=== PATIENT | male | born 1930 | race Hispanic/Latino ===

== ENCOUNTER 2016-12-16 18:51 | Inpatient (IN) | payer MEDICARE ==
--- NOTE | 2016-12-16 21:44 | RAD ---
RIGHT KNEE FOUR VIEW 12/16/16 HISTORY: Pain. COMPARISON: None. FINDINGS: Severe medial compartment osteoarthrosis and moderate patellofemoral and lateral compartment osteoar throsis. Severe vascular calcifications. There is articular surface remodeling and sclerosis of the medial compartment. IMPRESSION: 1. Severe medial compartment and moderate to severe lateral compartment and patellofemoral comp artment osteoarthritic disease. 2. Severe vascular calcifications. 3. No displaced fracture or malalignment. POS: [facility]
--- NOTE | 2016-12-16 22:58 | RAD ---
RIGHT HIP TWO VIEW 12/16/16 HISTORY: Pain. COMPARISON: Radiographs from the OR from 08/17/16. FINDINGS: There is a fracture of the right femoral neck which is mildly displaced and foreshortened approximat aram 7 mm. Partial backing out of the three partially threaded cannulated screws. IMPRESSION: Partial backing out of the three partially threaded cannulated screws with fracture of the femoral n emory with foreshortening of 7 mm. POS: [facility]
[2016-12-16] MEDS ORDERED: Acetaminophen 500 MG TAB ONE (23:16)
--- NOTE | 2016-12-16 23:21 | RAD ---
PELVIS AP STANDARD 12/16/16 HISTORY: Fracture. COMPARISON: Spot radiographs from 08/17/16. FINDINGS: There has been interval backing out of the three partially threaded cannulated screws. There is a fr acture of the femoral neck which is now displaced. There appears to be a similar fracture line as th at of the comparison. There is foreshortening of the right femoral neck approximately 6 mm. Left femoral nail is present. IMPRESSION: Partial backing out of the three partially threaded cannulated screws with fracture of the femoral n emory which is displaced and foreshortened. Orthopedic consultation is recommended. POS: [facility]
[2016-12-17] MEDS ORDERED: traMADol HCl 50 MG TAB PO PRN ×2 (00:39)
[2016-12-17] MEDS ORDERED: Dextrose 5% in Water 1,000 ML IV PRN (00:39)
[2016-12-17] MEDS ORDERED: Dextrose 50% Abboject 50 ML SYRINGE SLOW IVP PRN (00:39)
[2016-12-17] MEDS ORDERED: Ondansetron ODT 4 MG TAB PO PRN (00:39)
[2016-12-17] MEDS ORDERED: Ondansetron HCl/PF 4 MG/2 ML Vial IVP PRN (00:39)
[2016-12-17] MEDS ORDERED: Morphine Sulfate 2 MG/ML SYRINGE IVP PRN (00:39)
[2016-12-17] MEDS ORDERED: Sodium Chloride 0.9% 1,000 ML IV SCH (00:45)
[2016-12-17 01:00] LABS: #Basophils 0.1 thou/uL (0.0-0.2); #Eosinphils 0.3 thou/uL (0.0-0.7); #Lymphocytes 1.6 thou/uL (1.20-3.40); #Monocytes 0.8 thou/uL (0.11-0.59); #Neutrophils 6.5 thou/uL (1.40-6.50); %Basophils 0.9 % (0.0-1.0); %Lymphocytes 16.8 % (21.0-51.0); %Monocytes 8.8 % (0.0-10.0); Hematocrit 27.4 % (42.0-52.0); Mean Platelet Volume 7.6 fL (7.4-10.4); Red Blood Cell (RBC) Count 3.08 mill/uL (4.70-6.10); White Blood Cell (WBC) Count 9.3 thou/uL (4.8-10.8)
[2016-12-17 01:07] LABS: Prothrombin Time 14.3 SEC (12.0-14.7)
[2016-12-17 01:08] LABS: PTT 32.5 SEC (22.9-36.1)
[2016-12-17 01:25] LABS: Troponin I 0.066 ng/mL (< 0.028)
[2016-12-17 01:28] LABS: Anion Gap 17 mmol/L (10-20); BUN (Urea Nitrogen) 88 mg/dL (8.4-25.7); Calcium 10.4 mg/dL (7.8-10.44); Carbon Dioxide 23 mmol/L (23-31); Chloride 105 mmol/L (98-107); Magnesium 2.2 mg/dL (1.6-2.6); Phosphorus 6.1 mg/dL (2.3-4.7)
[2016-12-17 02:17] LABS: Calc. Creatinine Clearance 0 mL/min (70-130); Estimated GFR-MDRD 15
[2016-12-17 03:21] VITALS: BMI 23.1
[2016-12-17] MEDS: Acetaminophen 500 MG TAB PO SCH ×3 (05:30→18:44)
[2016-12-17] MEDS ORDERED: Tamsulosin HCl 0.4 MG CAP PO SCH (06:00)
--- NOTE | 2016-12-17 06:35 | HP ---
DATE OF ADMISSION: 12/17/2016 ATTENDING PHYSICIAN: Lv Lugo M.D. HISTORY OF PRESENT ILLNESS: Mr. Jones is an 86-year-old gentleman who presented to the [facility] with the chief complaint of right knee pain status post fall 2 days ago. The patien t was evaluated by emergency room personnel and found to have a right femoral neck fracture. Orthop edic surgery was notified and trauma services was asked to admit. Upon my evaluation, the patient r eports that he fell 2 days ago while trying to adjust something in his living room from his wheelcha ir. He forgot to lock the wheelchair, wheels down and fell out. He denied any head trauma or loss of consciousness. He has the chief complaint of right leg pain primarily located in the right hip a gage. No other complaints at this time. ALLERGIES: None. CHRONIC MEDICAL ILLNESSES: 1. Include congestive heart failure, EF approximately 40% to 45% per echo on 05/2016. He has follo wed by Dr. Guzman. 2. CKD followed by Dr. Gould. Baseline creatinine appears to be around 4. 3. History of coronary artery disease status post CABG. 4. COPD on chronic home O2; however, patient has not wearing O2 in the emergency room and O2 sat is 97%. 5. Chronically elevated troponin per H and P on 08/2016. 6. History of CVA, no residual deficit. 7. History of hypertension. 8. Dyslipidemia. 9. BPH. 10. Chronic anemia. 11. History of PE on aspirin only. PAST SURGICAL HISTORY: Significant for CABG, bilateral carotid endarterectomy, right eyelid surgery , left hip replacement, right hip repair, right knee surgery, left knee replacement. HOME MEDICATIONS: Include tamsulosin 0.4 mg p.o. daily, simvastatin 40 mg p.o. daily, ASA 81 mg p.o . daily, Plavix 75 mg p.o. daily, metolazone 5 mg 1 p.o. every other day, B12 supplement, calcitriol , Lasix 80 mg p.o. daily. SOCIAL HISTORY: The patient is wheelchair bound and lives at home with . Denies alcohol, tobac co or drug use. REVIEW OF SYSTEMS: Negative except as indicated in the HPI. FAMILY HISTORY: Significant for pancreatic cancer, brother with pancreatic cancer. CODE STATUS: FULL CODE. PHYSICAL EXAMINATION: VITAL SIGNS: Heart rate 88, blood pressure 183/96, O2 sat 97% on room air, respirations 18. GENERAL: Well-developed elderly appearing male in no acute distress, resting in bed. HEAD: Normocephalic, atraumatic. EYES: Pupils are PERRL. Extraocular movements are intact. NECK: Supple. Trachea is midline. There is no tenderness to palpation. Range of motion within no rmal limits. PULMONARY/CHEST: Atraumatic. Lungs: Normal work of breathing, symmetric rise. Lung sounds are di stant, but clear to auscultation bilaterally. CARDIOVASCULAR: Regular rate and rhythm, no obvious murmurs, rubs or gallops. ABDOMEN: Soft, atraumatic, nontender, nondistended. Bowel sounds are positive. BACK: Back exam is being reported within normal limits. MUSCULOSKELETAL: Bilateral upper extremities with scattered ecchymosis. No tenderness to palpation . Range of motion within normal limits per patient. Left lower extremity within normal limits, 1+ pedal edema bilaterally. Right lower extremity range of motion limited secondary to pain. He is ne urovascularly intact to the site of his injury. NEUROLOGIC: GCS 15. No focal deficit noted. LABORATORY FINDINGS: All laboratory findings are pending to include CBC, BMP, PT/INR and cardiac en zymes. EKG pending. Chest x-ray pending. X-ray of the right hip shows right femoral neck fracture with displacement of previously placed femoral hardware. Official read for pelvic x-ray pending. Right knee x-ray was negative for acute traumatic bony fracture or dislocation. ASSESSMENT: 1. Status post fall. 2. Acute traumatic pain. 3. Right femoral neck fracture. 4. History of coronary artery disease and congestive heart failure, status post bypass, known eject ion fraction of 40% to 45%. 5. Chronic kidney disease stage 4, followed by Dr. Gould. 6. History of cerebrovascular accident. 7. Hypertension. 8. History of chronic obstructive pulmonary disease. 9. History of chronic anemia. PLAN: 1. Admit to Trauma Services. 2. Orthopedic surgery has been notified and will evaluate the patient. 3. Cardiology consult for cardiac clearance perioperatively. 4. Follow up labs. 5. Pain management. 6. Antihypertensives p.r.n. and resume home medications once reconciled. 7. The patient was FULL CODE per discussion with patient and family at bedside. 8. Trauma attending has been notified of the admission. Admission was discussed with the patient a nd family. All questions were answered at the time of dictation.
[2016-12-17] MEDS ORDERED: HYDROcodone/Acetaminophen 7.5/325 mg Tablet PO PRN ×2 (07:59)
--- NOTE | 2016-12-17 08:13 | RAD ---
SINGLE VIEW OF THE CHEST: Comparison: 11-13-16 History: CHF. Pre-operative radiograph. FINDINGS: Single view of the chest shows an enlarged cardiomediastinal silhouette. The patient is status post sternotomy. Cardiac monitoring device projects over the left chest. Increased interstitial markings are present. There appear to be small bilateral pleural effusions. No changes compared to the prior exam. IMPRESSION: Stable cardiomegaly and small bilateral pleural effusions. POS: [facility]
[2016-12-17 08:28] LABS: Troponin I 0.074 ng/mL (< 0.028)
--- NOTE | 2016-12-17 10:14 | CON ---
DATE OF CONSULTATION: 12/17/2016 CONSULTING PHYSICIAN: Dr. Adin Gonzalez The patient admitted today via Trauma. He is an 86-year-old gentleman who came into the emergency [facility] with hip pain. Via history and family, he stood up to adjust something from his wheelchai r, it was not locked and he fell. He had had his hip repaired in July with percutaneous screws by Dr. Monet. Postoperatively the patient then went to rehab/skilled more to work with therapy, but he never really walked well per family. He always stated he could not walk. Digging a little deepe r it was because of pain. Family is not sure if the hip has been bothersome like it has been since his rehab stint or something happen there or if it just broke via his fall 2 days ago, they are not sure, but he has not ambulated very much since July. He has gotten up to the wheelchair and the co mmode, but that is about it per family. X-rays show percutaneous screws that look like they have backed out and the neck in the femoral head are displaced. PAST MEDICAL MEDICATIONS/MEDICATIONS/ALLERGIES/REVIEW OF SYSTEMS/MEDICAL HISTORY/SURGICAL HISTORY: Can all be gleaned from Zonia Mcclain's note dictated on 12/17/2016. I have gone over this with ck mora family, there are no changes. ASSESSMENT: Failure of hardware with fall and reoccurring right femoral neck fracture. PLAN: I spoke at length with the family. The patient is a little somnolent right now after receivi ng some tramadol, but he told the family he wants surgery and he wants to get back to his active lif estyle that has been diminished since July per the family. We discussed hardware removal with a he miarthroplasty and the patient and family are amenable to go forth with this. Our plan is to do thi s tomorrow at 12 once and if he is medically cleared. I discussed risks, benefits of doing surgery versus not doing the surgery and the patient and family are amenable to go forth with surgery. I recinos ve answered all their current questions and am available as is Dr. Gonzalez to go over any question s that may arise.
--- NOTE | 2016-12-17 11:56 | PRG ---
DATE OF SERVICE: 12/17/2016 The patient is being seen in the presence of his adult daughter and his at bedside. SUBJECTIVE: He reports intermittent episodes of pain into his hip. Pain currently is controlled on oral analgesics. The patient is otherwise on bowel rest. OBJECTIVE: VITAL SIGNS: Includes blood pressure 154/65, pulse 67, respiration 16, temperature is 97.5 degrees Fahrenheit, oxygen saturation is 98% on room air. HEENT: Reveals normocephalic and atraumatic. Pupils equal, round, reactive to light and accommodat ion. Extraocular muscles are intact bilaterally. No sclerae icterus is present. HEART: Reveals regular rate and rhythm, no murmurs or gallops auscultated. CHEST: Clear to auscultation bilaterally. CARDIOVASCULAR: Breathing is regular and unlabored. ABDOMEN: Soft, nontender and nondistended. Bowel sounds in all 4 quadrants, appear normoactive. EXTREMITIES: There are 2+ radial and pedal pulses bilaterally. No ankle edema is present. NEUROLOGIC: Reveals no focal deficits present. LABORATORY: I have reviewed the laboratory studies on this admission as reported by the trauma PA o n the history and physical. This includes metabolic profile: Sodium 140, potassium 4.5, chloride i s 105, bicarbonate 23, BUN and creatinine elevated at baseline 88 and 3.93 respectively. Glucose is 119. Due to this patient's extensive comorbidities and cardiac history, he has been seen in consultation by Cardiology prior to surgical intervention for the right hip fracture. Otherwise no additional critical care resuscitation is warranted for this patient at this time.
--- NOTE | 2016-12-17 14:18 | PRG ---
DATE OF SERVICE: 12/17/2016 SUBJECTIVE: Mr. Jones is awake and alert. His and daughter are at bedside during this visit . The patient reports intermittent hip pain. His pain is currently controlled on oral analgesics. On bowel rest, pending decision for surgical intervention. PHYSICAL EXAMINATION: VITAL SIGNS: Includes blood pressure 154/65, pulse 67, respiration is 16, temperature is 97.5 degre es Fahrenheit and oxygen saturation is 98% on room air. HEENT: Reveals normocephalic and atraumatic. Pupils equal, round, and reactive to light and accomm odation.
[2016-12-17] MEDS ORDERED: diphenhydrAMINE HCl 25 MG CAP PO SCH (17:00)
--- NOTE | 2016-12-17 17:51 | CON ---
DATE OF CONSULTATION: 12/17/2016 REASON FOR CONSULTATION: Preoperative evaluation. HISTORY OF PRESENT ILLNESS: Mr. Jones is a very pleasant 86-year-old gentleman, who come s to the hospital for fall. He was diagnosed with a recurrent fracture of the hip with failure of p reviously placed hardware and is scheduled to have a surgery tomorrow at fix this. He has been foll owing him for sometime now. He has a history of a cardiomyopathy, his EF is around 40-45%. Most re cently, seen on May of this year, he has never had a heart catheterization due to his kidney fa ilure. He has a baseline creatinine of around 4 and we run the risk of putting him on dialysis if w e did a heart catheterization. He has remained pretty much asymptomatic. He denies any chest pain, tightness, pressure. His shortness of breath is at baseline. He comes in for this fall. He hollie nues to feel the same from the heart perspective. Reviewing his chart, his most recent echocardiogr am was in September of this year and his EF is around 35% to 40%, which is pretty much unchanged from wha t it has been in the past. PAST MEDICAL HISTORY: 1. History of systolic dysfunction with EF about 35-40%. 2. Chronic kidney disease, baseline creatinine around 3 and 4. 3. Coronary artery disease, status post bypass grafting in the past. 4. Chronic obstructive pulmonary disease on chronic home O2. 5. History of cerebrovascular accident in the past. 6. Hypertension. 7. Hyperlipidemia. 8. Benign prostatic hypertrophy. 9. Chronic anemia. 10. PE in the past. PAST SURGICAL HISTORY: 1. Coronary artery bypass grafting in the past. 2. Bilateral carotid endarterectomy. 3. Right eyelid surgery. 4. Left hip replacement. 5. Right hip repair. 6. Right knee surgery. 7. Left knee replacement. OUTPATIENT MEDICATIONS: Include: 1. Tamsulosin. 2. Simvastatin 40 mg a day. 3. Aspirin 81 a day. 4. Plavix 75 mg a day. 5. Metolazone. 6. Vitamin B12. 7. Calcitriol. 8. Lasix 80 mg a day. SOCIAL HISTORY: Denies any alcohol, tobacco or drugs. He usually walks into the office on his own. He uses a walker. REVIEW OF SYSTEMS: A 12-point review of systems is done and is all negative unless stated in the hi story of present illness. FAMILY HISTORY: Noncontributory. PHYSICAL EXAMINATION: VITAL SIGNS: Temperature 97.6, pulse 76, respiration rate 18, satting 94% on room air, blood pressu re 155/74. GENERAL: Awake, alert and oriented x3, in no distress. HEENT: Normocephalic, atraumatic. NECK: Supple. LUNGS: Have reduced breath sounds and dry crackles. This is stable for him. ABDOMEN: Soft. Positive bowel sounds. CARDIOVASCULAR: S1, S2, no S3 or S4. There is a grade 3/6 holosystolic murmur at the apex. EXTREMITIES: No edema. SKIN: Warm and dry. LABORATORY WORK: Reviewed. White count of 9, hemoglobin of 8.7, hematocrit 27, platelet count 227. Coags were normal. Chemistry with a BUN of 88, creatinine 3.93, GFR 15. Troponin 0.06 and 0.07. CK-MB of 3.5 and 3.1. This is consistent with his chronically elevated troponin. They have all be en in the similar range in the past. EKG was reviewed. ASSESSMENT AND PLAN: Preoperative evaluation: Mr. Jones would be high risk for an intermediate r isk procedure. Really, there is many options in this case, he is not a good candidate for heart cat heterization as he has elevated creatinine and if this surgery would not be done in the next few day s, he is very likely that he may be bedridden for the rest of his days. He understands the high ris k of the situation and he wishes to proceed with surgery. I think this is reasonable, he is certain ly not prohibitive risk, so he should be able to undergo said procedure. I have had a long conversa tion with the family about this and they are also in agreement to this. Thank you for letting us participate in the care of your patient. We will continue follow.
[2016-12-18] MEDS: Acetaminophen 500 MG TAB PO SCH ×4 (05:36→20:52)
[2016-12-18] MEDS: Sodium Chloride 0.9% 1,000 ML IV SCH ×2 (06:53)
[2016-12-18 07:48] LABS: #Eosinphils 0.2 thou/uL (0.0-0.7); #Lymphocytes 1.5 thou/uL (1.20-3.40); #Monocytes 1.3 thou/uL (0.11-0.59); #Neutrophils 10.7 thou/uL (1.40-6.50); %Basophils 0.2 % (0.0-1.0); %Eosinophils 1.4 % (0.0-10.0); %Monocytes 9.2 % (0.0-10.0); Mean Platelet Volume 8.1 fL (7.4-10.4); White Blood Cell (WBC) Count 13.7 thou/uL (4.8-10.8)
[2016-12-18 08:01] LABS: Anion Gap 21 mmol/L (10-20); BUN (Urea Nitrogen) 88 mg/dL (8.4-25.7); Calc. Creatinine Clearance 10 mL/min (70-130); Calcium 10.3 mg/dL (7.8-10.44); Carbon Dioxide 14 mmol/L (23-31); Chloride 110 mmol/L (98-107); Estimated GFR-MDRD 15; Magnesium 2.2 mg/dL (1.6-2.6); Phosphorus 5.9 mg/dL (2.3-4.7)
[2016-12-18] MEDS ORDERED: Tamsulosin HCl 0.4 MG CAP PO SCH (09:00)
[2016-12-18] MEDS: Metoprolol Tartrate 25 MG TAB PO SCH (09:30)
--- NOTE | 2016-12-18 12:03 | PRG ---
DATE OF SERVICE: 12/18/2016 SUBJECTIVE: Mr. Jhonny Jones is an 86-year-old male who presented to [facility] ER status post fall. He was found to have a femoral fracture. He has a lengthy cardiac history. Cardiology was consul mark for clearance preoperatively. They have provided their opinion. Orthopedic Surgery plans for o perative intervention later this afternoon. He is currently n.p.o. He has no complaints this a.m. The pain has been controlled. OBJECTIVE: VITAL SIGNS: Temperature 98.2, pulse 108, respirations 18, O2 sat 96% on room air and blood pressur e 146/89. GENERAL: A well-developed elderly appearing male in no acute distress, resting in bed. PULMONARY: Normal work of breathing. Symmetrical rise. CARDIOVASCULAR: Tachycardic. EXTREMITIES: Well perfused. Pulses 2+ upper extremities. GASTROINTESTINAL: Abdomen is soft, nontender and nondistended. MUSCULOSKELETAL: Moves all extremities x4. Range of motion of right lower extremity is limited sec ondary to pain. Neurovascularly intact at distal side of his injury. NEUROLOGIC: No focal deficit noted. LABORATORY FINDINGS: WBC 13.7, hemoglobin 10.0, hematocrit 31 and platelet count 236. Sodium 140, potassium 5.1, chloride 110, CO2 of 14, BUN 88, creatinine 3.85, glucose 60 and phosphorus 5.9. ASSESSMENT: 1. Status post fall. 2. Right femoral neck fracture. 3. Acute traumatic pain. 4. History of coronary artery disease and congestive heart failure. 5. Chronic kidney disease stage 4. 6. Hypertension. 7. Tachycardia. 8. History of chronic obstructive pulmonary disease. 9. History of chronic anemia. PLAN: The patient to undergo operative intervention later this afternoon. We will follow up postop eratively. We will need PT and OT postoperatively. IS and pulmonary toilet encouraged. Pain manag ement. We will initiate deep venous thrombosis and gastritis prophylaxis and a.m. labs. We will st art beta arron for hypertension and tachycardia. The patient was seen and evaluated by Dr. Miguel.
[2016-12-18] MEDS ORDERED: Dexamethasone 4 mg/ml Vial ONE (13:08)
[2016-12-18] MEDS ORDERED: Midazolam HCl 2 mg/2 ml Vial ONE ×2 (14:49→15:56)
[2016-12-18] MEDS ORDERED: Fentanyl 100 MCG/2 ML VIAL ONE (15:56)
[2016-12-18] MEDS ORDERED: Phenylephrine 10 MG/NS 250 ML 250 ML ONE (15:56)
[2016-12-18] MEDS ORDERED: Promethazine HCl 25 MG/ML VIAL ONE (15:56)
[2016-12-18] MEDS ORDERED: Norepinephrine 4 MG/4 ML VIAL ONE (15:56)
[2016-12-18] MEDS ORDERED: Propofol 200 MG/20 ML VIAL ONE (16:17)
[2016-12-18] MEDS ORDERED: PHENYLEPHRINE-NS 100 MCG/ML 10 ML SYRINGE ONE (16:17)
[2016-12-18] MEDS ORDERED: Glycopyrrolate 0.2 MG/ML 5 ML SYRINGE ONE (16:17)
[2016-12-18] MEDS ORDERED: ePHEDrine/0.9% NaCl/PF SYRINGE 50 mg/10 ml ONE (16:17)
[2016-12-18] MEDS ORDERED: Ondansetron HCl/PF 4 MG/2 ML Vial ONE (16:17)
[2016-12-18] MEDS ORDERED: Lidocaine 1% PF 5 ML VIAL ONE (16:17)
[2016-12-18] MEDS ORDERED: Promethazine HCl 25 MG/ML VIAL IM PRN (18:05)
[2016-12-18] MEDS ORDERED: HYDROmorphone 2 MG/ML VIAL SLOW IVP PRN (18:05)
[2016-12-18] MEDS ORDERED: Meperidine HCl/PF 25 MG/ML VIAL SLOW IVP PRN (18:05)
[2016-12-18] MEDS ORDERED: Promethazine HCl 25 MG/ML VIAL SLOW IVP PRN (18:05)
[2016-12-18] MEDS ORDERED: Morphine Sulfate 2 MG/ML SYRINGE SLOW IVP PRN (18:05)
[2016-12-18] MEDS ORDERED: Ondansetron HCl/PF 4 MG/2 ML Vial IVP PRN (18:05)
--- NOTE | 2016-12-18 18:27 | PDOC.CTH ---
Cardiology Progress Note - Subjective This is late entry He was seen in the morning before surgery. He is doing well. He denies any chest pain, tightness, pressure, SOB. - Objective Vital Signs Temp Pulse Resp BP BP Pulse Ox 12/18/16 11:45 97.9 F 85 16 167/80 H 97 12/18/16 09:32 106 H 173/78 H 12/18/16 08:36 103 H 196/90 H 12/18/16 07:50 97.9 F 85 16 Weight 122 lb 1 oz 12/17/16 12/18/16 12/19/16 06:59 06:59 06:59 Intake Total 462.5 860 Output Total 550 975 Balance -87.5 -115 - Physical Examination General/Neuro: alert & oriented x3, NAD Neck: no JVD present Lungs: CTA, unlabored respirations Heart: RRR Abdomen: NT/ND Extremities: other: (no edema.) - Labs Result Diagrams: 12/18/16 07:40 12/18/16 07:40 Troponin/CKMB CK-MB (CK-2) 3.1 ng/mL (0-6.6) 12/17/16 07:46 Troponin I 0.074 ng/mL (< 0.028) H 12/17/16 07:46 - Assessment/Plan 1. Dilated CM, Ischemic 2. S/P CABG in the past. 3. CAD, stable. 4. Hip fracture, hardware issue. PLAN: - Proceed with plans for surgery this afternoon.
--- NOTE | 2016-12-18 20:01 | RAD ---
PELVIS ONE VIEW 12/18/16 HISTORY: Fracture. COMPARISON: Radiographs two days prior. FINDINGS: Satisfactory position of the right total hip arthroplasty. IMPRESSION: Satisfactory appearance of a right total hip arthroplasty. POS: [facility]
--- NOTE | 2016-12-18 20:20 | RAD ---
RIGHT HIP ONE VIEW 12/18/16 HISTORY: Hemiarthroplasty. COMPARISON: Radiographs from two days ago. FINDINGS: Interval satisfactory alignment of the right total hip arthroplasty. IMPRESSION: Satisfactory alignment of the right total hip arthroplasty on this single view. POS: [facility]
[2016-12-18] MEDS ORDERED: Famotidine 20 MG TAB PO SCH (21:00)
--- NOTE | 2016-12-18 22:41 | OP ---
DATE OF PROCEDURE: 12/18/2016 OPERATIONS: 1. Right hip hardware removal. 2. Right hip hemiarthroplasty, bipolar. PREOPERATIVE DIAGNOSIS: Nonunion of right femoral neck fracture. POSTOPERATIVE DIAGNOSIS: Nonunion of right femoral neck fracture. COMPLICATIONS: None. ESTIMATED BLOOD LOSS: Minimal. SURGEON: Ramiro Gonzalez M.D. TOXICOLOGIST: Sánchez Monet M.D. INDICATIONS: Mr. Jones is an 86-year-old male, who has a fracture of his right femoral neck. He underwent percutaneous screw fixation. 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 He has been indicated for hemiarthroplasty of the hip to restore function and relieve pain. Risks have been reviewed. He has elected to proceed with the operation. DESCRIPTION OF PROCEDURE: Mr. Jones was identified in the preoperative holding area. His correct extremity was marked. He was carried to the operating room. He was positioned supine. General an esthesia was induced. A multidisciplinary timeout was performed. The right lower extremity was pre pped and draped in sterile fashion. We began the procedure with a posterior approach to the hip. We dissected down through the subcutan eous tissue to the fascia, which was incised. We then exposed the short external rotators of the hi p. Next, we subperiosteally divided these from the proximal femur. We performed a capsulotomy. We then exposed the broken femoral head and neck. At this point, we removed the patient's 7.3 mm scre ws from the greater trochanteric region. All 3 screws were removed. Next, we performed a new osteo breanna of the femoral neck. We then removed the broken femoral head and neck fragments. We cleared t he acetabulum of bony fragments. At this point, we prepared the femoral canal for stem implantation. We reamed and broached up to a size 6. We accepted this with a stable fit. We trialed off of this. A +8.5 femoral head was appro priate for stability and range of motion. Once again, we thoroughly irrigated. We then cemented in our stem under appropriate cement technique using pressurization. Finally, we trialed once more an d then impacted our final femoral head and bipolar shell. We reduced the hip, it was in a stable po sition. We thoroughly irrigated with copious lavage. At this point, we closed the posterior tissue s with a #5 Ethibond suture. We then closed the fascia with #2 Vicryl suture followed by subcutaneo us closure and skin. A sterile dressing was applied. The patient was taken to the recovery room in good condition without complication. IMPLANTS: DePuy Loyal cemented stem size 6 and a 52 mm bipolar shell with a +8.5 femoral head.
[2016-12-19] MEDS: Metoprolol Tartrate 25 MG TAB PO SCH ×3 (00:28→20:46)
[2016-12-19] MEDS: Acetaminophen 500 MG TAB PO SCH ×5 (00:29→20:45)
[2016-12-19] MEDS: Tamsulosin HCl 0.4 MG CAP PO SCH ×3 (00:29→20:47)
[2016-12-19 05:23] LABS: #Eosinphils 0.1 thou/uL (0.0-0.7); #Lymphocytes 0.9 thou/uL (1.20-3.40); #Monocytes 0.8 thou/uL (0.11-0.59); #Neutrophils 11.4 thou/uL (1.40-6.50); %Basophils 0.1 % (0.0-1.0); %Eosinophils 0.4 % (0.0-10.0); %Lymphocytes 7.1 % (21.0-51.0); %Monocytes 6.3 % (0.0-10.0); Hematocrit 23.4 % (42.0-52.0); Red Blood Cell (RBC) Count 2.52 mill/uL (4.70-6.10); White Blood Cell (WBC) Count 13.2 thou/uL (4.8-10.8)
[2016-12-19 05:49] LABS: Anion Gap 23 mmol/L (10-20); BUN (Urea Nitrogen) 98 mg/dL (8.4-25.7); Calc. Creatinine Clearance 10 mL/min (70-130); Calcium 9.1 mg/dL (7.8-10.44); Carbon Dioxide 13 mmol/L (23-31); Chloride 112 mmol/L (98-107); Estimated GFR-MDRD 14; Magnesium 2.1 mg/dL (1.6-2.6); Phosphorus 8.3 mg/dL (2.3-4.7)
[2016-12-19] MEDS: Sodium Chloride 0.9% 1,000 ML IV SCH ×2 (05:53→10:30)
[2016-12-19] MEDS ORDERED: Heparin 5,000 UNITS/ML VIAL SC SCH (06:00)
[2016-12-19] MEDS ORDERED: Famotidine 20 MG TAB PO SCH (09:00)
[2016-12-19] MEDS ORDERED: traMADol HCl 50 MG TAB PO PRN (11:51)
--- NOTE | 2016-12-19 14:29 | PDOC.CTH ---
Cardiology Progress Note - Subjective he had surgery yesterday and did well. No chest pain, tightness, pressure, SOB. - Objective Vital Signs Temp Pulse Resp BP Pulse Ox 12/19/16 11:10 97.7 F 84 18 107/64 93 L 12/19/16 08:10 97.7 F 84 18 12/19/16 07:25 97.9 F 95 16 147/68 H 96 12/19/16 04:26 97.8 F 86 20 110/45 L 94 L Weight 122 lb 1 oz 12/18/16 12/19/16 12/20/16 06:59 06:59 06:59 Intake Total 860 1080 Output Total 975 200 Balance -115 880 - Physical Examination General/Neuro: alert & oriented x3, NAD Neck: no JVD present Lungs: unlabored respirations Heart: RRR Abdomen: NT/ND Extremities: other: (no edema.) - Labs Result Diagrams: 12/19/16 04:17 12/19/16 04:17 Troponin/CKMB CK-MB (CK-2) 3.1 ng/mL (0-6.6) 12/17/16 07:46 Troponin I 0.074 ng/mL (< 0.028) H 12/17/16 07:46 - Assessment/Plan 1. Ischemic CM, stanle. 2. CAD, stable. PLAN: - PT as tolerated. - Will sign off. Please call with any questions.
[2016-12-19] MEDS: Heparin 5,000 UNITS/ML VIAL SC SCH ×2 (15:53→20:46)
--- NOTE | 2016-12-19 17:51 | PRG-2 ---
DATE OF SERVICE: 12/19/2016 LOCATION: Surgery [facility] REPORT DICTATED BY: Dr. Jackelyn Alberto SUBJECTIVE: Mr. Jhonny Jones is an 86-year-old male who presented status post fall with femoral frac ture, now status post intraoperative repair, now status post hemiarthroplasty of the right hip with anticipated gnosticism of function. The patient this morning was alert and oriented x3. He was wo rking with physical therapy, tolerating p.o. He is currently pending approval at [facility]. Prior to fall and fracture the patient was mostly wheelchair bound at home by [facility] due to hip surgery in July with resultant lack of range of motion and associated pain. The patient would use a wheelchair at home. He would make transfers by himself from wheelchair to couch , would stand and take a few steps by himself, but mostly predominantly wheelchair bound. The patie nt was , pain is adequately controlled. PHYSICAL EXAMINATION: VITAL SIGNS: Temperature 97.7, pulse 84, respiratory rate 18, O2 sat 93% on 2 liters, blood pressur es 157/64. GENERAL: Thin male, in no acute distress, working with physical therapy in bed. PULMONARY: Decreased breath sounds bilaterally. No wheezing, rhonchi, or rales appreciated. Symme trical rise and fall. CARDIOVASCULAR: Regular rate and rhythm. Normal S1 and S2. No murmurs, rubs or gallops appreciate d. EXTREMITIES: Thin. Decreased range of motion. GASTROINTESTINAL: The abdomen is soft, nontender, nondistended, hypoactive bowel sounds. NEUROLOGIC: No focal deficits. LABORATORY DATA: White blood cell count 13.2, H\T\H 7.5 and 23.4, platelets 195. Chemistry: Sodium 142, potassium 5.5, chloride 112, bicarbonate 13, BUN 98, creatinine 4. ASSESSMENT: 1. Right femoral neck fracture status post hemiarthroplasty. 2. Chronic kidney disease stage 4. 3. History of coronary artery disease and congestive heart failure. 4. Anemia. 5. Hypertension. 6. Chronic obstructive pulmonary disease. PLAN: Status post right hemiarthroplasty. We will continue PT and OT for the patient. We will enc ourage incentive spirometry. We will manage the patient's pain adequately. We will start the patie nt on a renal and heart healthy diet. We will continue to advance the patient's diet as tolerated. We will recommend [facility] for patient.
[2016-12-19 20:17] VITALS: BP 121/65; TEMP 97.7
--- NOTE | 2016-12-23 10:06 | DIS ---
DATE OF ADMISSION: 12/17/2016 DATE OF DISCHARGE: 12/19/2016 ADMISSION DIAGNOSES: 1. Status post fall. 2. Acute traumatic pain. 3. Right femoral neck fracture. 4. Multiple comorbidities. CONSULTATION: Orthopedics, Dr. Gonzalez. PROCEDURES: 1. Right hip hardware removal. 2. Right hip hemiarthroplasty, bipolar. SUMMARY: The patient is an 86-year-old man, who reportedly had a ground level fall onto his right h ip to which he had previously sustained a fracture and underwent percutaneous screw fixation. He h ad fracture just distal to these repairs and necessitated removal of this hardware and replaced with bipolar hemiarthroplasty. The patient underwent this procedure and tolerated well. He would event ually be discharged to rehab for continuation of care. The patient at time of discharge was ambulat ory with a walker. His pain was controlled and his diet was tolerated. He will follow up with Dr. Gonzalez in 2 weeks or sooner as needed. The patient also will follow up with his primary care pro vider and other specialists for his chronic comorbidities.
--- NOTE | 2017-01-10 18:46 | EKG ---
Test Reason : Blood Pressure : / mmHG Vent. Rate : 088 BPM Atrial Rate : 088 BPM P-R Int : 122 ms QRS Dur : 108 ms QT Int : 404 ms P-R-T Axes : 000 -48 047 degrees QTc Int : 488 ms Normal sinus rhythm Pulmonary disease pattern Incomplete right bundle branch block Left anterior fascicular block Septal infarct , age undetermined Abnormal ECG Confirmed by PARTH HALE D.O. ([id number]), subeditor FRANCISCO ALY ([id number]) on 01/10/2017 6:46:17 PM Referred By: Confirmed By:PARTH HALE D.O.
== END 2016-12-19 20:45 | DRG 470 ==
LOC: ERS 18:51 → SURG A 12-17 00:18
PROVIDERS: ADMIT Specialist; ATTEND Specialist
PROC: 0SRR0J9 Replacement of Right Hip Joint, Femoral Surface with Synthetic Substitute, Cemented, Open Approach (ICD-10-PCS; principal; 2016-12-18)
PROC: 0QP604Z Removal of Internal Fixation Device from Right Upper Femur, Open Approach (ICD-10-PCS; 2016-12-18)
PROC: 3E0T3BZ Introduction of Anesthetic Agent into Peripheral Nerves and Plexi, Percutaneous Approach (ICD-10-PCS; 2016-12-18)
PROC: 3E0T3CZ (ICD-10-PCS; 2016-12-18)
DX: S72.001A Fracture of unspecified part of neck of right femur, initial encounter for closed fracture (principal); N18.4 Chronic kidney disease, stage 4 (severe); J44.9 Chronic obstructive pulmonary disease, unspecified; Z99.81 Dependence on supplemental oxygen; I12.9 Hypertensive chronic kidney disease with stage 1 through stage 4 chronic kidney disease, or unspecified chronic kidney disease; I25.5 Ischemic cardiomyopathy; I25.10 Atherosclerotic heart disease of native coronary artery without angina pectoris; D64.9 Anemia, unspecified; R00.0 Tachycardia, unspecified; Z86.73 Personal history of transient ischemic attack (TIA), and cerebral infarction without residual deficits; Z95.1 Presence of aortocoronary bypass graft; Z99.3 Dependence on wheelchair; Z96.642 Presence of left artificial hip joint; Z96.652 Presence of left artificial knee joint; Z80.42 Family history of malignant neoplasm of prostate; W05.0XXA Fall from non-moving wheelchair, initial encounter; Y92.008 Other place in unspecified non-institutional (private) residence as the place of occurrence of the external cause
CPT/HCPCS: 36415; 71010; 72170; 80048; 82553; 83735; 84100; 84484; 85025; 85610; 85730; 86850; 86900; 86901; 93005; 96374; C1713; G8978-GP-CM; G8979-GP-CK; G8987-GO-CM; G8988-GO-CK; J0360; J1100; J1170; J1644; J2001; J2250; J2270; J2405; J2550; J2704; J3010